=== PATIENT | male | born 1955 | race Caucasian/White ===

== ENCOUNTER → 2020-03-25 | Outpatient (CLI) | payer MEDICARE ==
[2020-03-25 11:37] LABS: BASOPHILS % (AUTO) 0.6 % (0.0-5.0); EOSINOPHILS % (AUTO) 0.6 % (0.0-8.0); HEMATOCRIT 30.5 % (42-54); LYMPHOCYTES % (AUTO) 7.7 % (21.0-51.0); MEAN CORPUSCULAR HEMOGLOBIN 32.1 pg (27.0-33.0); MEAN CORPUSCULAR HGB CONC 32.5 g/dL (32.0-36.0); MONOCYTES % (AUTO) 16.5 % (3.0-13.0); NEUTROPHILS % (AUTO) 71.9 % (40.0-77.0); PLATELET COUNT (AUTO) 137 K/uL (130-400); RED BLOOD CELL COUNT(AUTO) 3.08 MIL/uL (4.50-6.20); RED CELL DISTRIBUTION WIDTH 18.5 % (11.0-15.5); WHITE BLOOD COUNT (AUTO) 15.2 K/uL (4.8-10.8)
[2020-03-25 11:43] LABS: ALBUMIN 3.6 g/dL (3.5-5.0); BILIRUBIN,TOTAL 1.1 mg/dL (0.2-1.0); CREATININE 1.1 mg/dL (0.5-1.5); POTASSIUM 5.2 mmol/L (3.5-5.1); TOTAL PROTEIN, SERUM 6.1 g/dL (6.0-8.3)
[2020-03-25 11:59] LABS: INR 1.24 (0.85-1.15); PROTHROMBIN TIME 13.3 SEC (9.6-11.6)
== END | disposition home or self-care (01) ==
LOC: RAH 09:41
PROVIDERS: ATTEND Internal Medicine
DX: K70.31 Alcoholic cirrhosis of liver with ascites (principal)
CPT/HCPCS: 36415; 76700; 80053; 82105; 85025; 85610

== ENCOUNTER 2020-06-14 21:48 | Inpatient (IN) | payer MEDICARE ==
[~2020-06-14] VITALS: Ht 181.6 cm; Wt 90.3 kg
[2020-06-14 22:16] LABS: BASOPHILS % (AUTO) 0.3 % (0.0-5.0); EOSINOPHILS % (AUTO) 0.8 % (0.0-8.0); HEMATOCRIT 24.4 % (42-54); MEAN CORPUSCULAR HEMOGLOBIN 32.6 pg (27.0-33.0); MEAN CORPUSCULAR HGB CONC 34.8 g/dL (32.0-36.0); MEAN CORPUSCULAR VOLUME 93.5 fL (79-99); MONOCYTES % (AUTO) 17.1 % (3.0-13.0); NEUTROPHILS % (AUTO) 69.7 % (40.0-77.0); NUCLEATED RED BLOOD CELLS 0.1 % (0.0-0.19); PLATELET COUNT (AUTO) 220 K/uL (130-400); RED BLOOD CELL COUNT(AUTO) 2.61 MIL/uL (4.50-6.20); RED CELL DISTRIBUTION WIDTH 21.4 % (11.0-15.5)
[2020-06-14 22:29] LABS: POTASSIUM 4.7 mmol/L (3.5-5.1)
[2020-06-14 22:33] LABS: INR 1.43 (0.85-1.15); PARTIAL THROMBOPLASTIN TIME 41.8 SEC (26.3-35.5); PROTHROMBIN TIME 15.2 SEC (9.6-11.6)
[2020-06-14 22:34] LABS: ALBUMIN 2.5 g/dL (3.5-5.0); BILIRUBIN,TOTAL 1.3 mg/dL (0.2-1.0); TOTAL PROTEIN, SERUM 4.6 g/dL (6.0-8.3)
[2020-06-14] MEDS ORDERED: CEFEPIME HCL 1 GM VIAL ONE (23:15)
[2020-06-15] MEDS ORDERED: MORPHINE SULFATE 4 MG/1ML SYG IV PRN (00:30)
[2020-06-15] MEDS: ALBUMIN (HUMAN) 25% 200 ML IV SCH ×2 (00:30→19:22)
[2020-06-15] MEDS ORDERED: HYDRALAZINE HCL 20 MG/ML VIAL IV PRN (00:30)
[2020-06-15] MEDS ORDERED: LACTULOSE 20 GM/30 ML UDCUP PO PRN (00:30)
[2020-06-15] MEDS ORDERED: GUAIFENESIN-DM 200/20 MG 10 ML PO PRN (00:30)
[2020-06-15] MEDS ORDERED: ACETAMINOPHEN-CODEINE 300/30MG TAB PO PRN (00:30)
[2020-06-15] MEDS ORDERED: ONDANSETRON HCL 4 MG/2 ML VIAL IV PRN (00:30)
[2020-06-15] MEDS ORDERED: ACETAMINOPHEN 325 MG TAB PO PRN (00:30)
[2020-06-15] MEDS ORDERED: ZOLPIDEM TARTRATE 5 MG TAB PO PRN (00:30)
[2020-06-15] MEDS ORDERED: MAG HYDROX/AL HYDROX/SIMETH ES 30 ML SUSP UDCUP PO PRN (00:30)
[2020-06-15] MEDS ORDERED: DiphenhydrAMINE HCL 50 MG/ML VIAL IV PRN (00:30)
[2020-06-15] MEDS ORDERED: VANCOMYCIN PROTOCOL PER PHARMACY IV SCH (00:45)
[2020-06-15] MEDS: FUROSEMIDE 10 MG/ML 4ML VIAL IV SCH ×2 (01:45→13:45)
[2020-06-15] MEDS ORDERED: LACTULOSE 20 GM/30 ML UDCUP ONE ×3 (03:29→14:08)
[2020-06-15] MEDS ORDERED: ALBUMIN (HUMAN) 25% 100 ML IV STA (03:54)
[2020-06-15] MEDS ORDERED: VANCOMYCIN 1GM+NS 250ML 250 ML IV ONE (03:54)
[2020-06-15] MEDS ORDERED: DOPAMINE HCL 400 MG/D5%-WATER 250 ML IV PRN (04:00)
[2020-06-15] MEDS ORDERED: ALBUMIN (HUMAN) 25% 100 ML IV ONE (04:03)
[2020-06-15] MEDS ORDERED: DOPAMINE 800MG/D5 250ML 250 ML IV ONE ×2 (04:14→15:47)
[2020-06-15 04:21] LABS: APPEARANCE,URINE Clear (CLEAR); BILIRUBIN,URINE Small (NEGATIVE); COLOR,URINE Dark Yellow (YELLOW); GLUCOSE, URINE (UA) Negative (NEGATIVE); KETONES,URINE Trace mg/dL (NEGATIVE); LEUKOCYTE ESTERASE ,URINE Trace (NEGATIVE); NITRATE,URINE Negative (NEGATIVE); OCCULT BLOOD,URINE Negative (NEGATIVE); PROTEIN,URINE Negative (NEGATIVE)
[2020-06-15] MEDS ORDERED: ZOLPIDEM TARTRATE 5 MG TAB ONE (04:33)
[2020-06-15] MEDS ORDERED: FUROSEMIDE 10 MG/ML 2ML VIAL ONE (04:33)
[2020-06-15] MEDS ORDERED: MORPHINE SULFATE 4 MG/1ML SYG ONE ×2 (04:33→08:29)
[2020-06-15 04:40] LABS: BACTERIA,URINE Few /HPF (None Seen); SQUAMOUS EPITHELIAL CELL,UR 0-2 /HPF (0-2)
[2020-06-15 04:57] LABS: BASOPHILS % (AUTO) 0.3 % (0.0-5.0); EOSINOPHILS % (AUTO) 0.9 % (0.0-8.0); LYMPHOCYTES % (AUTO) 7.5 % (21.0-51.0); MEAN CORPUSCULAR HEMOGLOBIN 33.3 pg (27.0-33.0); MEAN CORPUSCULAR HGB CONC 35.9 g/dL (32.0-36.0); MEAN CORPUSCULAR VOLUME 92.9 fL (79-99); MONOCYTES % (AUTO) 19.3 % (3.0-13.0); NEUTROPHILS % (AUTO) 67.7 % (40.0-77.0); PLATELET COUNT (AUTO) 163 K/uL (130-400); RED BLOOD CELL COUNT(AUTO) 1.98 MIL/uL (4.50-6.20); RED CELL DISTRIBUTION WIDTH 21.2 % (11.0-15.5); WHITE BLOOD COUNT (AUTO) 19.9 K/uL (4.8-10.8)
[2020-06-15] MEDS: CEFTAZIDIME PENTAHYDRATE 1 GM/VIAL IVP SCH (05:00)
[2020-06-15 05:03] LABS: HEMATOCRIT 18.4 % (42-54)
[2020-06-15 05:20] LABS: ALBUMIN 2.3 g/dL (3.5-5.0); BILIRUBIN,TOTAL 1.7 mg/dL (0.2-1.0); CREATININE 2.6 mg/dL (0.5-1.5); PHOSPHORUS 3.8 mg/dL (2.5-4.9); POTASSIUM 3.8 mmol/L (3.5-5.1)
[2020-06-15] MEDS ORDERED: VANCOMYCIN 2 GM in SODIUM CHLORIDE 0.9% 500ML 500 ML IV SCH (06:00)
[2020-06-15] MEDS ORDERED: BENZONATATE 100 MG CAPSULE PO ONE ×2 (07:50→14:09)
[2020-06-15] MEDS ORDERED: FUROSEMIDE 10 MG/ML 4ML VIAL ONE (07:51)
[2020-06-15] MEDS ORDERED: FAMOTIDINE/PF 20 MG/2 ML VIAL IV ONE (07:51)
[2020-06-15] MEDS ORDERED: FAMOTIDINE/PF 20 MG/2 ML VIAL IV SCH (09:00)
[2020-06-15] MEDS ORDERED: HEPARIN SODIUM 5000UNIT/ML 1ML VIAL ONE ×2 (10:20→14:09)
[2020-06-15] MEDS ORDERED: COMPOUND IV REFRIGERATED 1 EACH IVSOLN MISC PRN (10:45)
[2020-06-15] MEDS: LACTULOSE 20 GM/30 ML UDCUP PO SCH ×2 (12:00)
--- NOTE | 2020-06-15 13:52 | NUR ---
INITIAL SW spoke to patient's daughter, Jacy Sarah. She informed SW that patient lives alone but her brother in law is going to go stay with patient once he is discharged home. No home services. DME: walker, wheelchair, shower chair, raised toilet seat. Patient need help with ADL's and does not drive. Family assist as needed. Patient has no PCP at this time. Pharmacy is [facility] located in [place]. DCP is home. No safety issues voiced by family. Addendum: 06/15/20 at 1357 by CORAZON SEXTON Amended: Links added.
[2020-06-15] MEDS: BENZONATATE 100 MG CAPSULE PO SCH ×2 (14:00→21:42)
[2020-06-15] MEDS: HEPARIN SODIUM 5000UNIT/ML 1ML VIAL SQ SCH ×2 (14:00→21:45)
[2020-06-15] MEDS ORDERED: FURO40TA5 PO (18:45)
[2020-06-15] MEDS ORDERED: SPIR100T5 PO (18:45)
[2020-06-15 18:46] VITALS: BP 111/67
[2020-06-15 19:00] VITALS: BP 98/57
--- NOTE | 2020-06-15 19:30 | NUR ---
ASSESSMENT PT RESTING IN BED, DOPAMINE INFUSING WITHOUT DIFFICULTY. DRY MOUTH, SEVERE ASCITES, SLURRED SPEECH, UNCOOPERATIVE AT TIMES, REFUSES TO KEEP O2 ON AT TIMES. ASSESSMENT COMPLETED, SEE FLOW SHEET.
[2020-06-15] MEDS ORDERED: LEVO88TA7 PO (19:32)
[2020-06-15] MEDS ORDERED: LACT10SO9 PO (19:32)
[2020-06-15] MEDS ORDERED: OMEP40CA13 PO (19:32)
[2020-06-15] MEDS ORDERED: TAMS-1 PO (19:32)
[2020-06-15] MEDS ORDERED: MULT-264 PO (19:32)
[2020-06-15] MEDS ORDERED: TIZA4CAP8 PO (19:32)
[2020-06-15 20:00] VITALS: BP 99/63
--- NOTE | 2020-06-15 20:40 | NUR ---
DAUGHTER ROLAND MICHAEL UP-DATED ON PT STATUS. QUESTIONS ASKED AND ANSWERED. PT MADE AWARE OF STATUS, QUESTIONS ASKED AND ANSWERED. MADE AWARE OF DOPAMINE AND RATIONALE.
[2020-06-15 21:00] VITALS: BP 81/46
[2020-06-15] MEDS: ACETAMINOPHEN 325 MG TAB PO PRN (21:43)
[2020-06-15 22:00] VITALS: BP 80/47
[2020-06-15 23:00] VITALS: BP 113/78
[2020-06-16] VITALS (10 sets, daily range): BP systolic 96–127; BP diastolic 54–80
[2020-06-16] MEDS: LACTULOSE 20 GM/30 ML UDCUP PO SCH
[2020-06-16] MEDS: FUROSEMIDE 10 MG/ML 4ML VIAL IV SCH (02:15)
[2020-06-16] MEDS: ACETAMINOPHEN 325 MG TAB PO PRN (02:33)
[2020-06-16] MEDS: CEFTAZIDIME PENTAHYDRATE 1 GM/VIAL IVP SCH (05:09)
--- NOTE | 2020-06-16 07:45 | NUR ---
PATIENT YELLING AT STAFF AND AT FAMILY ON THE PHONE. 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 YELLING THAT HE WANTS TO GO HOME AND TOLD DAUGHTER HE WANTS TO AT HOME. I OFFERED TO CALL THE DOCTOR TO DISCUSS OPTIONS FOR CARE AT HOME AND PATIENT REFUSED. PATIENT INSISTING THAT HE JUST NEEDS TO GO HOME. DR ANAY MORALES. FURNITURE PAINTER AND CHARGE NURSE MADE AWARE.
--- NOTE | 2020-06-16 08:55 | NUR ---
INOCENCIA CLINICAL NURSING ASSISTANT WITH HOSPITALIST RETURNED PAGE, MADE AWARE OF AMA AND SAID HE CAN GO WHEM HIS DAUGHTER GETS HERE, DAUGHTER IN PARKING LOT.
[2020-06-16] MEDS ORDERED: VANCOMYCIN 750MG + NS 250 ML IV SCH ×2 (09:00)
--- NOTE | 2020-06-16 09:05 | NUR ---
PATIENT SIGNED AMA PAPERWORK. PIVS REMOVED AND DRESSINGS APPLIED. PATIENT CLEANED UP AND PLACED IN FRESH GOWN.
--- NOTE | 2020-06-16 09:30 | NUR ---
PATIENT TAKEN TO DAUGHTER'S VAN VIA WHEELCHAIR. ASSISTED INTO VAN BY PATIENT'S SON IN LAW. FAMILY HAS NO QUESTIONS. FAMILY VERY APOLOGETIC FOR PATIENT'S BEHAVIOR TOWARDS STAFF. PATIENT IN STABLE CONDITION AT TIME OF LEAVING.
== END 2020-06-16 09:30 | disposition left against medical advice (07) | DRG 871 ==
LOC: EDH 21:48 → EDHIP 06-15 00:21 → DAHIP 06-15 18:13
PROVIDERS: ADMIT Hospitalist; ATTEND Hospitalist
DX: A41.9 Sepsis, unspecified organism (principal); K85.90 Acute pancreatitis without necrosis or infection, unspecified; L03.115 Cellulitis of right lower limb; L03.116 Cellulitis of left lower limb; E87.2 Acidosis; C85.90 Non-Hodgkin lymphoma, unspecified, unspecified site; K70.31 Alcoholic cirrhosis of liver with ascites; F17.200 Nicotine dependence, unspecified, uncomplicated; Z60.2 Problems related to living alone; G89.29 Other chronic pain; Z88.2 Allergy status to sulfonamides; Z82.0 Family history of epilepsy and other diseases of the nervous system
CPT/HCPCS: 36415; 71045; 80053; 81001; 82040; 82140; 82550; 83605; 83690; 83735; 84100; 84484; 85018; 85025; 85610; 85730; 86850; 86900; 86901; 87040; 93005; 99291; G0378; J0692; J0713; J1265; J1644; J1940; J2270; J3370; J3490; J7040; J7050; P9046